=== PATIENT | male | born 1990 | race Caucasian/White ===

== ENCOUNTER → 2020-03-10 13:54 | Outpatient (CLI) | payer OTHER, SELFPAY ==
[2020-03-10 14:26] LABS: Influenza A - CEPHEID Flu A NEGATIVE (NEGATIVE); Influenza B - CEPHEID Flu B NEGATIVE (NEGATIVE)
[2020-03-10 14:27] LABS: COVID19 -Nasal RAPID Negative (Negative)
== END ==
PROVIDERS: PCP Family Medicine; Visit Provider Physician Assistant
DX: Z11.59 Encounter for screening for other viral diseases (principal); R52 Pain, unspecified
CPT/HCPCS: 87502; 87635

== ENCOUNTER 2021-07-27 13:07 | Emergency (ER) | payer OTHER, SELFPAY ==
[2021-07-27 13:26] VITALS: PULSE 64; RESP 16; TEMP 36.8; O2SAT 100; BMI 24.7
--- NOTE | 2021-07-27 13:33 | DI.RAD.S_ITS ---
PROCEDURE: XR CHEST 1V INDICATIONS: chest pain TECHNIQUE: One view of the chest was acquired. COMPARISON: None. FINDINGS: Surgical changes and devices: None. Lungs and pleura: Biapical pleural thickening/scarring. No consolidation, pleural effusions or pneumothorax. Mediastinum: Mediastinal contours appear normal. Heart size is normal. Bones and chest wall: No suspicious bony lesions. Overlying soft tissues appear unremarkable. IMPRESSION: No acute cardiopulmonary abnormality. Dictated by: Cortez Cardoso M.D. on 07/27/2021 at 14:51 Approved by: Cortez Cardoso M.D. on 07/27/2021 at 14:51
[2021-07-27 13:56] LABS: Add Manual Diff / Slide Review NO; Basophils Absolute Auto 0 /uL (0-100); Basophils Percent Auto 0.4 % (0-2); Eosinophils Absolute Auto 0 /uL (0-450); Eosinophils Percent Auto 0.8 % (2-4); Hematocrit 41.8 % (41-53); Hemoglobin 14.4 g/dL (13.5-17.5); Lymphocytes Absolute Auto 2200 /uL (1100-4500); Lymphocytes Percent Auto 40.5 % (25-40); Mean Corpuscular HGB Conc 34.5 % (30-36); Mean Corpuscular Hemoglobin 31.7 PG (26-34); Mean Corpuscular Volume 91.9 fL (80-100); Monocytes Absolute Auto 400 /uL (0-900); Neutrophils Absolute Auto 2800 /uL (1500-7000); Neutrophils Percent Auto 51.3 % (50-75); Platelet Count 160 X10^3/uL (150-400); Red Blood Cell Count 4.55 X10^6/uL (4.5-5.9); White Blood Cell Count 5.4 X10^3/uL (4.5-11.0)
[2021-07-27 14:12] LABS: Alanine Aminotransferase 19 IU/L (<50); Albumin 4.6 g/dL (3.5-5.0); Albumin Globulin Ratio 1.5 (1.0-2.8); Alkaline Phosphatase 54 U/L (38-126); Aspartate Aminotransferase 26 IU/L (17-59); BUN Creatinine Ratio 16.7 (6-22); Bilirubin Total 0.7 mg/dL (0.2-1.3); Blood Urea Nitrogen 14 mg/dL (9-20); Calcium 9.1 mg/dL (8.4-10.2); Carbon Dioxide 32 mmol/L (22-32); Chloride 106 mmol/L (98-107); Creatine Kinase 87 U/L (55-170); Estimated Glomerular Filt Rate > 60 mL/min (>60); Glucose 80 mg/dL (70-100); HEMOLYSIS < 15 (0-50); Lipase 46 U/L (23-300); Potassium 4.4 mmol/L (3.4-5.1); Sodium 142 mmol/L (137-145); Total Protein 7.6 g/dL (6.3-8.2)
[2021-07-27 14:24] LABS: Troponin I < 0.012 ng/mL (0.01-0.034)
[2021-07-27 16:44] VITALS: BP 126/68; PULSE 69; RESP 17; O2SAT 100
[2021-07-27 17:00] VITALS: BP 114/56; PULSE 64; RESP 22; O2SAT 100
[2021-07-27 17:03] LABS: Troponin I < 0.012 ng/mL (0.01-0.034)
--- NOTE | 2021-07-27 17:09 | ED_ITS ---
HPI - Chest Pain <Abad Chavez PA-C - Last Filed: 07/27/21 17:25> General Chief Complaint: Chest Pain Stated Complaint: chest pain, ongoing for a week Time Seen by Provider: 07/27/21 13:58 Source: patient Mode of arrival: Ambulatory Limitations: no limitations History of Present Illness HPI narrative: This is a 31-year-old male presents to the emergency department due to roughly a week history of chest tightness with occasional pain with deep breathing. No pain with exertion or while at rest. Patient denies any significant shortness of breath, numbness or tingling in the upper extremities, or any other concerning signs or symptoms. Denies any trauma to the chest wall area. Related Data Home Medications Medication Instructions Recorded Confirmed No Known Home Medications 03/10/20 03/10/20 Allergies Allergy/AdvReac Type Severity Reaction Status Date / Time No Known Allergies Allergy Uncoded 03/10/20 13:52 Review of Systems <Abad Chavez PA-C - Last Filed: 07/27/21 17:25> Review of Systems Narrative: See HPI Patient History <Abad Chavez PA-C - Last Filed: 07/27/21 17:25> Medical History (Updated 07/27/21 @ 17:25 by Abad Chavez PA-C) No active medical problems Family History (Updated 05/03/17 @ 00:00 by Conversion Provider) Grandfather Heart disease Social History Smoking Status: Never smoker Smoking Status: Never smoker alcohol intake frequency: holidays/special occasions only Substance Use Type: does not use Exam <Abad Chavez PA-C - Last Filed: 07/27/21 17:25> Narrative Exam Narrative: GENERAL: 31 year old patient appears stated age. Well-developed patient, in mild distress. HEAD: Atraumatic. Normocephalic. EYES: Pupils equal round and reactive. Extraocular motions intact. No scleral icterus. No injection or drainage. ENT: Nose without bleeding, purulent drainage. Throat without erythema, tonsillar hypertrophy or exudate. Airway patent. NECK: Trachea midline. Non tender CARDIOVASCULAR: Regular rate and rhythm without murmurs, gallops, or rubs. RESPIRATORY: Clear to auscultation. Breath sounds equal bilaterally. No wheezes, rales, or rhonchi. GASTROINTESTINAL: Abdomen soft, non-tender, nondistended. EXTREMITIES: No edema or joint tenderness. BACK: Nontender without deformity or crepitance. No flank tenderness. NEURO: AOx3. SKIN: No rash or erythema of visible areas Initial Vital Signs Initial Vital Signs: Vital Signs Temperature 98.2 F 07/27/21 13:26 Pulse Rate 64 07/27/21 13:26 Respiratory Rate 16 07/27/21 13:26 Pulse Oximetry 100 07/27/21 13:26 <Rachel Orellana DO - Last Filed: 07/27/21 20:53> Initial Vital Signs Initial Vital Signs: Vital Signs Temperature 98.2 F 07/27/21 13:26 Pulse Rate 64 07/27/21 13:26 Respiratory Rate 16 07/27/21 13:26 Pulse Oximetry 100 07/27/21 13:26 Course <Abad Chavez PA-C - Last Filed: 07/27/21 17:25> Orders Ordered: ED Orders 07/27/21 13:33 XR chest 1V Stat 07/27/21 13:40 Complete Blood Count AUTO DIFF Stat Comprehensive Metabolic Panel Stat Lipase Stat Magnesium Stat Troponin & CK Cardiac Panel Stat 07/27/21 13:45 EKG-12 Lead Stat 07/27/21 15:58 EKG-12 Lead Stat 07/27/21 16:35 Troponin I Stat Vital Signs Vital signs: Vital Signs - 8 hr 07/27/21 13:26 07/27/21 16:44 07/27/21 17:00 Temperature 98.2 F Pulse Rate 64 69 64 Respiratory Rate 16 17 22 Blood Pressure 126/68 114/56 L Pulse Oximetry 100 100 100 <Rachel Orellana DO - Last Filed: 07/27/21 20:53> Orders Ordered: ED Orders 07/27/21 13:33 XR chest 1V Stat 07/27/21 13:40 Complete Blood Count AUTO DIFF Stat Comprehensive Metabolic Panel Stat Lipase Stat Magnesium Stat Troponin & CK Cardiac Panel Stat 07/27/21 13:45 EKG-12 Lead Stat 07/27/21 15:58 EKG-12 Lead Stat 07/27/21 16:35 Troponin I Stat Vital Signs Vital signs: Vital Signs - 8 hr 07/27/21 13:26 07/27/21 16:44 07/27/21 17:00 Temperature 98.2 F Pulse Rate 64 69 64 Respiratory Rate 16 17 22 Blood Pressure 126/68 114/56 L Pulse Oximetry 100 100 100 MDM - Chest Pain <Abad Chavez PA-C - Last Filed: 07/27/21 17:25> Lab Data Result diagrams: 07/27/21 13:40 07/27/21 13:40 Labs: Lab Results 07/27/21 07/27/21 07/27/21 Range/Units 13:40 13:40 16:35 WBC 5.4 (4.5-11.0) X10^3/uL RBC 4.55 (4.5-5.9) X10^6/uL Hgb 14.4 (13.5-17.5) g/dL Hct 41.8 (41-53) % MCV 91.9 (80-100) fL MCH 31.7 (26-34) PG MCHC 34.5 (30-36) % RDW 13.0 (11.6-14.8) % Plt Count 160 (150-400) X10^3/uL Neut % (Auto) 51.3 (50-75) % Lymph % (Auto) 40.5 H (25-40) % [place] % (Auto) 7.0 (3-14) % Eos % (Auto) 0.8 L (2-4) % Baso % (Auto) 0.4 (0-2) % Neut # (Auto) 2800 (8979-3947) /uL Lymph # (Auto) 2200 (8741-5757) /uL [place] # (Auto) 400 (0-900) /uL Eos # (Auto) 0 (0-450) /uL Baso # (Auto) 0 (0-100) /uL Sodium 142 (137-145) mmol/L Potassium 4.4 (3.4-5.1) mmol/L Chloride 106 (98-107) mmol/L Carbon Dioxide 32 (22-32) mmol/L BUN 14 (9-20) mg/dL Creatinine 0.84 (0.66-1.25) mg/dL Estimated GFR > 60 (>60) mL/min BUN/Creatinine Ratio 16.7 (6-22) Glucose 80 (70-100) mg/dL Calcium 9.1 (8.4-10.2) mg/dL Magnesium 2.0 (1.6-2.3) mg/dL Total Bilirubin 0.7 (0.2-1.3) mg/dL AST 26 (17-59) IU/L ALT 19 (<50) IU/L Alkaline Phosphatase 54 (38-126) U/L Total Creatine Kinase 87 (55-170) U/L CK-MB (CK-2) TNP CK-MB (CK-2) Rel Index TNP Troponin I < 0.012 < 0.012 (0.01-0.034) ng/mL Total Protein 7.6 (6.3-8.2) g/dL Albumin 4.6 (3.5-5.0) g/dL Globulin 3.0 (1.7-4.1) g/dL Albumin/Globulin Ratio 1.5 (1.0-2.8) Lipase 46 (23-300) U/L Imaging Data Chest x-ray: Radiologist's Impression: [address] [address] XRay Report Signed Patient: Gregorio Garcia MR#: [id number] : 1990 Acct:[id number] Age/Sex: 31 / M Date of Service: 07/27/21 Loc: ED Accession Number: [id number] ?? Procedure: XR chest 1V Ordering Provider: Rachel Orellana D.O. PROCEDURE:? XR CHEST 1V ? INDICATIONS:? chest pain ? TECHNIQUE:? One view of the chest was acquired.? ? COMPARISON:? None. ? FINDINGS:? ? Surgical changes and devices:? None.? ? Lungs and pleura:? Biapical pleural thickening/scarring.? No consolidation, pleural effusions or pneumothorax.? ? Mediastinum:? Mediastinal contours appear normal.? Heart size is normal.? ? Bones and chest wall:? No suspicious bony lesions.? Overlying soft tissues appear unremarkable.? ? IMPRESSION:? No acute cardiopulmonary abnormality. ? ? Dictated by: Cortez Cardoso M.D. on 07/27/2021 at 14:51 ? ? Approved by: Cortez Cardoso M.D. on 07/27/2021 at 14:51 ? MDM Narrative Medical decision making narrative: This is otherwise her healthy 31-year-old male presents to the emergency department for suspected costochondritis. EKG showed no evidence of ACS. Troponin within normal limits. Chest x-ray showed no lung injury, abnormality, or rib x-abnormalities. Recommended conservative management. <Rachel Orellana, DO - Last Filed: 07/27/21 20:53> Lab Data Labs: Lab Results 07/27/21 07/27/21 07/27/21 Range/Units 13:40 13:40 16:35 WBC 5.4 (4.5-11.0) X10^3/uL RBC 4.55 (4.5-5.9) X10^6/uL Hgb 14.4 (13.5-17.5) g/dL Hct 41.8 (41-53) % MCV 91.9 (80-100) fL MCH 31.7 (26-34) PG MCHC 34.5 (30-36) % RDW 13.0 (11.6-14.8) % Plt Count 160 (150-400) X10^3/uL Neut % (Auto) 51.3 (50-75) % Lymph % (Auto) 40.5 H (25-40) % [place] % (Auto) 7.0 (3-14) % Eos % (Auto) 0.8 L (2-4) % Baso % (Auto) 0.4 (0-2) % Neut # (Auto) 2800 (5169-4852) /uL Lymph # (Auto) 2200 (0609-3154) /uL [place] # (Auto) 400 (0-900) /uL Eos # (Auto) 0 (0-450) /uL Baso # (Auto) 0 (0-100) /uL Sodium 142 (137-145) mmol/L Potassium 4.4 (3.4-5.1) mmol/L Chloride 106 (98-107) mmol/L Carbon Dioxide 32 (22-32) mmol/L BUN 14 (9-20) mg/dL Creatinine 0.84 (0.66-1.25) mg/dL Estimated GFR > 60 (>60) mL/min BUN/Creatinine Ratio 16.7 (6-22) Glucose 80 (70-100) mg/dL Calcium 9.1 (8.4-10.2) mg/dL Magnesium 2.0 (1.6-2.3) mg/dL Total Bilirubin 0.7 (0.2-1.3) mg/dL AST 26 (17-59) IU/L ALT 19 (<50) IU/L Alkaline Phosphatase 54 (38-126) U/L Total Creatine Kinase 87 (55-170) U/L CK-MB (CK-2) TNP CK-MB (CK-2) Rel Index TNP Troponin I < 0.012 < 0.012 (0.01-0.034) ng/mL Total Protein 7.6 (6.3-8.2) g/dL Albumin 4.6 (3.5-5.0) g/dL Globulin 3.0 (1.7-4.1) g/dL Albumin/Globulin Ratio 1.5 (1.0-2.8) Lipase 46 (23-300) U/L ECG Data Attestation: I personally reviewed and interpreted this ECG as follows: Interpretation: Sinus rhythm rate of 65 CO 150 QRS 100 QTC [address] No acute ST elevation depression noted. EKG 2. Sinus bradycardia rate of 58 CO 148 QRS of 94 QTC [address] No acute ST changes except for lead V2 but no alternative changes in V1, V3 or other lateral leads. Discharge Plan Departure Patient Disposition: Home Clinical Impression: Costalchondritis Instructions: DI for Costochondritis Activity Restrictions/Additional Instructions: Thank you for coming to the [facility] Emergency Department today. Your EKG showed no evidence of a heart attack. We will also do a blood test was checked for this in this value was normal. The chest x-ray showed no evidence of pneumonia, lung injury, rib fracture injury, or any other abnormal findings. I suspect this is a mild inflammation of the cartilage in your chest wall. This should improve with rest, ibuprofen, and time. I hope you feel better soon. Prescriptions: No Action No Known Home Medications 0RF Referrals: Sindhu Vicente DO [Primary Care Provider] - <Rachel Orellana DO - Last Filed: 07/27/21 20:53> Cosign ED Attending Cosignature Attestation: I was immediately available in the department for consultation. Documentation has been reviewed.
== END 2021-07-27 17:35 | disposition home or self-care (01) ==
PROVIDERS: Emergency Medicine; Emergency Provider Physician Assistant Medical; PCP Family Medicine
DX: M94.0 Chondrocostal junction syndrome [Tietze] (principal); R00.1 Bradycardia, unspecified
CPT/HCPCS: 36415; 71045; 80053; 82550; 83690; 83735; 84484; 85025; 93005; 99284